=== PATIENT | female | born 1930 | race American Indian/Alaskan Native ===

== ENCOUNTER 2017-03-22 11:39 | Inpatient (IN) | payer OTHER, MEDICAID ==
[2017-03-24 19:00] VITALS: BMI 22.4
[2017-03-24] MEDS ORDERED: Insulin Regular 100 units/ml SC SCH (22:00)
[2017-03-25] MEDS: Pravastatin Sodium 20 MG TAB PO SCH ×2 (00:45→21:18)
[2017-03-25] MEDS ORDERED: Potassium Chl 20 mEq in NS 1,000 ML IV SCH (03:45)
[2017-03-25 03:48] VITALS: RESP 20
[2017-03-25 07:51] LABS: HEMOGLOBIN 9.3 g/dL (12.0-16.0); MEAN CELL VOLUME 87.5 fl (81.0-99.0); MEAN CORPUSCULAR HEMOGLOBIN 28.9 pg (27.0-31.0); RBC 3.21 Mil/uL (3.80-5.20); RED CELL DISTRIBUTION WIDTH 14.8 % (11.5-14.5); WHITE BLOOD COUNT 8.4 K/uL (4.8-10.8)
[2017-03-25 07:58] LABS: PARTIAL THROMBOPLASTIN TIME 29.7 Seconds (25.6-37.1); PROTHROMBIN TIME 11.6 Seconds (9.8-13.1)
[2017-03-25 08:01] LABS: ALBUMIN 2.6 g/dL (3.5-5.0); ALT/SGPT 31 U/L (9-52); AST/SGOT 41 U/L (14-36); BLOOD UREA NITROGEN 12 mg/dl (7-17); CALCIUM 8.3 mg/dL (8.4-10.2); GFR AFRICAN-AMERICAN > 60; GFR NON-AFRICAN AMERICAN > 60
[2017-03-25 08:19] LABS: ALB/GLOB RATIO 0.8 (1.0-2.1)
[2017-03-25] MEDS: Pantoprazole 40 mg EC Tab PO SCH (08:48)
[2017-03-25] MEDS: Enoxaparin 40 mg Syringe SC SCH (08:48)
[2017-03-25] MEDS ORDERED: Potassium Chloride 20 mEq ER Tab PO ONE (09:51)
[2017-03-25] MEDS: Magnesium Oxide 400 mg Tab UD PO SCH ×2 (11:28→16:40)
[2017-03-26 06:56] LABS: BLOOD UREA NITROGEN 12 mg/dl (7-17); CALCIUM 8.6 mg/dL (8.4-10.2); GFR AFRICAN-AMERICAN > 60; GFR NON-AFRICAN AMERICAN > 60; MAGNESIUM 1.7 MG/DL (1.6-2.3)
[2017-03-26] MEDS: Enoxaparin 40 mg Syringe SC SCH (09:32)
[2017-03-26] MEDS: Magnesium Oxide 400 mg Tab UD PO SCH ×2 (09:33→16:34)
[2017-03-26] MEDS: Pantoprazole 40 mg EC Tab PO SCH (09:35)
[2017-03-26] MEDS: Potassium Chloride 20 mEq ER Tab PO SCH ×2 (13:30→16:35)
[2017-03-26] MEDS: Pravastatin Sodium 20 MG TAB PO SCH (21:17)
[2017-03-27 07:49] LABS: BLOOD UREA NITROGEN 11 mg/dl (7-17); CALCIUM 8.8 mg/dL (8.4-10.2); GFR AFRICAN-AMERICAN > 60; GFR NON-AFRICAN AMERICAN > 60
[2017-03-27] MEDS: Pantoprazole 40 mg EC Tab PO SCH (08:21)
[2017-03-27] MEDS: Magnesium Oxide 400 mg Tab UD PO SCH ×2 (08:22→17:15)
[2017-03-27] MEDS: Enoxaparin 40 mg Syringe SC SCH (08:23)
--- NOTE | 2017-03-27 10:06 | CP.PCM.PN ---
Subjective - Date & Time of Evaluation Date of Evaluation: 03/27/17 Time of Evaluation: 10:04 - Subjective Subjective: Patient still complaining of hip pain, denies wrist pain. Denies numbness/ tingling. Objective - Vital Signs/Intake and Output Vital Signs (last 24 hours): Temp Pulse Resp BP Pulse Ox 98.2 F 85 20 129/66 99 03/27/17 08:10 03/27/17 08:22 03/27/17 08:10 03/27/17 08:22 03/27/17 08:10 - Medications Medications: Current Medications Acetaminophen (Tylenol 325mg Tab) 650 mg PO Q4 PRN PRN Reason: Fever of 100.6 F and Above Acetaminophen (Tylenol 325mg Tab) 650 mg PO Q4 PRN PRN Reason: Pain, Mild (1-3) Last Admin: 03/27/17 08:21 Dose: 650 mg Amlodipine Besylate (Norvasc) 5 mg PO DAILY [facility] Last Admin: 03/27/17 08:22 Dose: 5 mg Docusate Sodium (Colace) 100 mg PO BID [facility] Last Admin: 03/27/17 08:22 Dose: 100 mg Enoxaparin Sodium (Lovenox) 40 mg SC DAILY [facility] PRN Reason: Protocol Last Admin: 03/27/17 08:23 Dose: 40 mg Hydrochlorothiazide (Hydrodiuril) 25 mg PO DAILY [facility] Last Admin: 03/27/17 08:22 Dose: 25 mg Lisinopril (Zestril) 10 mg PO DAILY [facility] Last Admin: 03/27/17 08:22 Dose: 10 mg Magnesium Oxide (Mag-Ox) 400 mg PO BID [facility] Stop: 03/28/17 10:01 Last Admin: 03/27/17 08:22 Dose: 400 mg Ondansetron HCl (Zofran Inj) 4 mg IVP Q4 PRN PRN Reason: Nausea/Vomiting Pantoprazole Sodium (Protonix Ec Tab) 40 mg PO DAILY [facility] Last Admin: 03/27/17 08:21 Dose: 40 mg Pravastatin Sodium (Pravachol) 20 mg PO HS [facility] Last Admin: 03/26/17 21:17 Dose: 20 mg - Labs Labs: 03/25/17 05:30 03/27/17 07:01 PT 11.6 Seconds (9.8-13.1) 03/25/17 05:30 INR 1.0 (0.9-1.2) 03/25/17 05:30 APTT 29.7 Seconds (25.6-37.1) 03/25/17 05:30 - Extremities Exam Additional comments: LLE: +ROM ankle/toes, sensation intact, calves soft NT neg homans, incision intact, no erythema LUE: splint no longer over hand, falling off. +ROM fingers, sensation intact, cap refill < 2 sec, re wrapped Assessment and Plan (1) Closed left hip fracture Assessment & Plan: POD# 8 s/p left THR for fx -VTE proph -PT/OT -dressing changes daily prn -d/w Dr. Moreno, agrees with above Status: Acute (2) Fracture of left distal radius Assessment & Plan: splint re wrapped will repeat xrays to check for position plan casting when swelling decreased NWB on LUE at this time d/w Dr. Moreno, agrees with above Status: Acute
--- NOTE | 2017-03-27 11:00 | RAD ---
PROCEDURE: Left Wrist Radiographs. HISTORY: f/u left distal radius fx COMPARISON: None. FINDINGS: Distal left upper extremity cast limits evaluation of fine bony detail. Minimally angulated distal radial metaphyseal fracture is evident. The visualized joint spaces are mildly diffusely narrowed. The osseous structures are osteopenic. IMPRESSION: Minimally angulated distal radial metaphyseal fracture.
[2017-03-27 12:31] LABS: HEMOGLOBIN 10.5 g/dL (12.0-16.0); MEAN CORPUSCULAR HEMOGLOBIN 28.7 pg (27.0-31.0); RBC 3.65 Mil/uL (3.80-5.20); RED CELL DISTRIBUTION WIDTH 15.2 % (11.5-14.5); WHITE BLOOD COUNT 9.6 K/uL (4.8-10.8)
--- NOTE | 2017-03-27 13:24 | CP.PCM.CON ---
History of Present Illness - History of Present Illness History of Present Illness: Dr Hagan PMR consultation on Daniela Linda, born 1930, who has been admitted to [facility] for PHU following a left hip and radial fracture. She is NWB on the left UE and PWB on the left LE. Anterior approach to the THR was performed. Denies nerve symptoms Review of Systems - Constitutional Constitutional: absent: Anorexia - EENT Ears: absent: Ear Discharge, Ear Pain Nose/Mouth/Throat: absent: Nasal Congestion - Cardiovascular Cardiovascular: absent: Chest Pain - Respiratory Respiratory: absent: Dyspnea - Gastrointestinal Gastrointestinal: absent: Constipation - Musculoskeletal Musculoskeletal: absent: Numbness - Neurological Neurological: absent: Abnormal Movements, Radicular Pain Past Patient History - Infectious Disease Hx of Infectious Diseases: None - Tetanus Immunizations Tetanus Immunization: Unknown - Past Medical History & Family History Past Medical History?: Yes - Past Social History Smoking Status: Light Smoker < 10 Cigarettes Daily Alcohol: None Drugs: Denies Home Situation {Lives}: With Family - CARDIAC Hx Cardiac Disorders: Yes Hx Hypertension: Yes - PULMONARY Hx Respiratory Disorders: No - NEUROLOGICAL HX Cerebrovascular Accident: Yes - HEENT Hx HEENT Problems: No - RENAL Hx Chronic Kidney Disease: No - ENDOCRINE/METABOLIC Hx Diabetes Mellitus Type 2: Yes - HEMATOLOGICAL/ONCOLOGICAL Hx Blood Disorders: No - INTEGUMENTARY Hx Dermatological Problems: No - MUSCULOSKELETAL/RHEUMATOLOGICAL Hx Falls: Yes Other/Comment: L hip fx - GASTROINTESTINAL Hx Gastrointestinal Disorders: No - GENITOURINARY/GYNECOLOGICAL Hx Genitourinary Disorders: No - PSYCHIATRIC Hx Substance Use: No - SURGICAL HISTORY Other/Comment: yes, enlarged bladder, poor urinary control, date unknown - ANESTHESIA Hx Anesthesia: Yes Hx Anesthesia Reactions: No Meds Allergies/Adverse Reactions: Allergies Allergy/AdvReac Type Severity Reaction Status Date / Time No Known Allergies Allergy Verified 03/24/17 18:57 - Medications Medications: Current Medications Acetaminophen (Tylenol 325mg Tab) 650 mg PO Q4 PRN PRN Reason: Fever of 100.6 F and Above Acetaminophen (Tylenol 325mg Tab) 650 mg PO Q4 PRN PRN Reason: Pain, Mild (1-3) Last Admin: 03/27/17 08:21 Dose: 650 mg Amlodipine Besylate (Norvasc) 5 mg PO DAILY [facility] Last Admin: 03/27/17 08:22 Dose: 5 mg Docusate Sodium (Colace) 100 mg PO BID [facility] Last Admin: 03/27/17 08:22 Dose: 100 mg Enoxaparin Sodium (Lovenox) 40 mg SC DAILY [facility] PRN Reason: Protocol Last Admin: 03/27/17 08:23 Dose: 40 mg Ferrous Sulfate (Feosol) 325 mg PO BID [facility] Hydrochlorothiazide (Hydrodiuril) 25 mg PO DAILY [facility] Last Admin: 03/27/17 08:22 Dose: 25 mg Lisinopril (Zestril) 10 mg PO DAILY [facility] Last Admin: 03/27/17 08:22 Dose: 10 mg Magnesium Oxide (Mag-Ox) 400 mg PO BID [facility] Stop: 03/28/17 10:01 Last Admin: 03/27/17 08:22 Dose: 400 mg Ondansetron HCl (Zofran Inj) 4 mg IVP Q4 PRN PRN Reason: Nausea/Vomiting Pantoprazole Sodium (Protonix Ec Tab) 40 mg PO DAILY [facility] Last Admin: 03/27/17 08:21 Dose: 40 mg Pravastatin Sodium (Pravachol) 20 mg PO HS [facility] Last Admin: 03/26/17 21:17 Dose: 20 mg Physical Exam - Constitutional Appears: Non-toxic - Head Exam Head Exam: ATRAUMATIC, NORMAL INSPECTION, NORMOCEPHALIC - Eye Exam Eye Exam: EOMI - ENT Exam ENT Exam: Mucous Membranes Moist - Respiratory Exam Respiratory Exam: NORMAL BREATHING PATTERN - Cardiovascular Exam Cardiovascular Exam: REGULAR RHYTHM - GI/Abdominal Exam GI & Abdominal Exam: absent: Distended, Firm - Extremities Exam Extremities exam: Negative for: calf tenderness, pedal edema - Neurological Exam Neurological exam: Alert, Oriented x3 - Psychiatric Exam Psychiatric exam: Normal Affect, Normal Mood Results - Vital Signs Recent Vital Signs: Last Vital Signs Temp 98.2 F 03/27/17 08:10 Pulse 85 03/27/17 08:22 Resp 20 03/27/17 08:10 BP 129/66 03/27/17 08:22 Pulse Ox 99 03/27/17 08:10 - Labs Result Diagrams: 03/27/17 12:10 03/27/17 07:01 Labs: Laboratory Results - last 24 hr 03/27/17 03/27/17 07:01 12:10 WBC 9.6 RBC 3.65 L Hgb 10.5 L Hct 31.7 L MCV 87.0 MCH 28.7 MCHC 33.0 RDW 15.2 H Plt Count 397 D Sodium 133 Potassium 4.1 Chloride 98 Carbon Dioxide 31 H Anion Gap 8 L BUN 11 Creatinine 0.7 Est GFR ( Amer) > 60 Est GFR (Non-Af Amer) > 60 Random Glucose 101 Calcium 8.8 Assessment & Plan - Assessment and Plan (Free Text) Assessment: s/p left THR, anterior approach left radial fracture has venodyne boots for DVT prophylaxis and LMWH as well. pain is controlled NWB for now UE and PWB left LE. continue current care
[2017-03-27] MEDS: Pravastatin Sodium 20 MG TAB PO SCH (22:24)
--- NOTE | 2017-03-27 23:47 | PN ---
DATE: 03/27/2017 SUBJECTIVE: The patient is seen today, 03/27/2017, in Transitional Care Unit. PHYSICAL EXAMINATION: VITAL SIGNS: Blood pressure is 124/79, temperature 98.4, respiratory rate 20 and pulse 90. HEENT: Pupils equal, reactive to light. Normal-appearing mucosa of the conjunctivae, oropharyngeal and nasal membrane mucosa. NECK: Supple. No JVD. No carotid bruit. No lymph node. No thyromegaly. CHEST AND LUNGS: Bilateral symmetrical expansion. Good air exchange. No rales, no rhonchi. CARDIOVASCULAR SYSTEM: PMI not localized. S1 and S2. No additional sounds. ABDOMEN: Normoactive bowel sounds. No tenderness. No organomegaly. No masses. EXTREMITIES: No cyanosis, no clubbing, no edema. CENTRAL NERVOUS SYSTEM: Alert, awake, oriented x2. No neurological deficits could be appreciated. ASSESSMENT: 1. Status post left total hip replacement. 2. Hypertension. 3. Hypercholesterolemia. PLAN: Continue physical therapy and occupational therapy. Resume all home medications. We will check blood work. Vinod Hutchison MD
[2017-03-28] MEDS: Magnesium Oxide 400 mg Tab UD PO SCH (08:34)
[2017-03-28] MEDS: Enoxaparin 40 mg Syringe SC SCH (08:34)
[2017-03-28] MEDS: Pantoprazole 40 mg EC Tab PO SCH (08:35)
--- NOTE | 2017-03-28 11:25 | CP.PCM.PN ---
Subjective - Date & Time of Evaluation Date of Evaluation: 03/28/17 Time of Evaluation: 11:22 - Subjective Subjective: Patient states she is tired. Still has mild pain in her hip. No pain in her wrist. Objective - Vital Signs/Intake and Output Vital Signs (last 24 hours): Temp Pulse Resp BP Pulse Ox 99.3 F 79 20 133/68 100 03/28/17 08:57 03/28/17 08:57 03/28/17 08:57 03/28/17 08:57 03/28/17 08:57 - Medications Medications: Current Medications Acetaminophen (Tylenol 325mg Tab) 650 mg PO Q4 PRN PRN Reason: Fever of 100.6 F and Above Acetaminophen (Tylenol 325mg Tab) 650 mg PO Q4 PRN PRN Reason: Pain, Mild (1-3) Last Admin: 03/27/17 08:21 Dose: 650 mg Amlodipine Besylate (Norvasc) 5 mg PO DAILY [facility] Last Admin: 03/28/17 08:34 Dose: 5 mg Docusate Sodium (Colace) 100 mg PO BID [facility] Last Admin: 03/28/17 08:32 Dose: 100 mg Enoxaparin Sodium (Lovenox) 40 mg SC DAILY [facility] PRN Reason: Protocol Last Admin: 03/28/17 08:34 Dose: 40 mg Ferrous Sulfate (Feosol) 325 mg PO BID [facility] Last Admin: 03/28/17 08:33 Dose: 325 mg Hydrochlorothiazide (Hydrodiuril) 25 mg PO DAILY [facility] Last Admin: 03/28/17 08:34 Dose: 25 mg Lisinopril (Zestril) 10 mg PO DAILY [facility] Last Admin: 03/28/17 08:35 Dose: 10 mg Ondansetron HCl (Zofran Inj) 4 mg IVP Q4 PRN PRN Reason: Nausea/Vomiting Pantoprazole Sodium (Protonix Ec Tab) 40 mg PO DAILY [facility] Last Admin: 03/28/17 08:35 Dose: 40 mg Pravastatin Sodium (Pravachol) 20 mg PO HS [facility] Last Admin: 03/27/17 22:24 Dose: 20 mg - Labs Labs: 03/27/17 12:10 03/27/17 07:01 PT 11.6 Seconds (9.8-13.1) 03/25/17 05:30 INR 1.0 (0.9-1.2) 03/25/17 05:30 APTT 29.7 Seconds (25.6-37.1) 03/25/17 05:30 - Extremities Exam Additional comments: Left hip: dressing changed. Incision intact, dry, no erythema. +ROm ankle/toes, sensation intact calves sfot NT neg homans +DP/PT pulses Left wrist: xrays reviewed, no obvious change in position of distal radius fx on ap/lat/oblique. SAC placed, NVID pre and post casting. Swellingn improved. +ROM fingers, sensationintact Assessment and Plan (1) Closed left hip fracture Assessment & Plan: s/p THR dressing changes PT vte proph d/w Dr. Szymanski, agrees with above Status: Acute (2) Fracture of left distal radius Assessment & Plan: s/p casting non op NWB on wrist, but can use platform walker for ambulation Status: Acute
[2017-03-28] MEDS: Pravastatin Sodium 20 MG TAB PO SCH (21:40)
[2017-03-29] MEDS: Enoxaparin 40 mg Syringe SC SCH (08:55)
[2017-03-29] MEDS: Pantoprazole 40 mg EC Tab PO SCH (08:58)
[2017-03-29 18:34] LABS: SQUAMOUS EPITHIAL 3 /hpf (0-5); URINE BACTERIA OCC (<OCC); URINE BILIRUBIN NEGATIVE (NEGATIVE); URINE BLOOD SMALL (NEGATIVE); URINE CLARITY CLOUDY (Clear); URINE COLOR YELLOW (YELLOW); URINE GLUCOSE (UA) NEG (Normal); URINE LEUKOCYTE ESTERASE LARGE Leu/uL (Negative); URINE NITRATE NEGATIVE (NEGATIVE); URINE PROTEIN NEGATIVE (NEGATIVE); WBC CLUMPS OCC /hpf
[2017-03-29] MEDS: Pravastatin Sodium 20 MG TAB PO SCH (21:00)
[2017-03-30 07:35] LABS: BASO % 0.4 % (0.0-2.0); EOS # 0.1 K/uL (0.0-0.7); EOS % 0.9 % (0.0-4.0); HEMOGLOBIN 9.9 g/dL (12.0-16.0); LYMPH # 1.4 K/uL (1.0-4.3); MEAN CELL VOLUME 87.2 fl (81.0-99.0); MEAN CORPUSCULAR HEMOGLOBIN 28.7 pg (27.0-31.0); MEAN PLATELET VOLUME 7.6 fl (7.2-11.7); MONO # 0.9 K/uL (0.0-0.8); MONO % 8.7 % (0.0-10.0); NEUT # 8.2 K/uL (1.8-7.0); RBC 3.44 Mil/uL (3.80-5.20); RED CELL DISTRIBUTION WIDTH 14.9 % (11.5-14.5); WHITE BLOOD COUNT 10.7 K/uL (4.8-10.8)
[2017-03-30 07:42] LABS: ALB/GLOB RATIO 0.9 (1.0-2.1); ALBUMIN 3.2 g/dL (3.5-5.0); ALT/SGPT 46 U/L (9-52); AST/SGOT 36 U/L (14-36); BLOOD UREA NITROGEN 19 mg/dl (7-17); GFR AFRICAN-AMERICAN > 60; GFR NON-AFRICAN AMERICAN 60
--- NOTE | 2017-03-30 07:52 | CP.PCM.CON ---
History of Present Illness - History of Present Illness History of Present Illness: Pt is an 86 year old female admitted to [facility] TCU and referred to the technical publications writer for evaluation. Med history positive for fall and multiple fractures according to the patient. She reported having hip surgery with "the fear of not walking again." See medical record for complete medical history and medications. Social History: pt reported that her grandson resides with her. She spoke of having 4 children who all and 10+ grandchildren. Ed/ Voc: pt raised in [place], she graduated HS. 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 Pt spoke of spending her time watching TV and playing cards. MSE: Pt alert, oriented to year, month, day, affect constricted, mood dysphoric/ anxious over status, fear of not walking again. Education provided and strategies introduced to reduce distress/negative thoughts. Dx: Adjustment Dx with depression/anxiety Plan: Continued Sup therapy Past Patient History - Infectious Disease Hx of Infectious Diseases: None - Tetanus Immunizations Tetanus Immunization: Unknown - Past Medical History & Family History Past Medical History?: Yes - Past Social History Smoking Status: Light Smoker < 10 Cigarettes Daily Alcohol: None Drugs: Denies Home Situation {Lives}: With Family - CARDIAC Hx Cardiac Disorders: Yes Hx Hypertension: Yes - PULMONARY Hx Respiratory Disorders: No - NEUROLOGICAL HX Cerebrovascular Accident: Yes - HEENT Hx HEENT Problems: No - RENAL Hx Chronic Kidney Disease: No - ENDOCRINE/METABOLIC Hx Diabetes Mellitus Type 2: Yes - HEMATOLOGICAL/ONCOLOGICAL Hx Blood Disorders: No - INTEGUMENTARY Hx Dermatological Problems: No - MUSCULOSKELETAL/RHEUMATOLOGICAL Hx Falls: Yes Other/Comment: L hip fx - GASTROINTESTINAL Hx Gastrointestinal Disorders: No - GENITOURINARY/GYNECOLOGICAL Hx Genitourinary Disorders: No - PSYCHIATRIC Hx Substance Use: No - SURGICAL HISTORY Other/Comment: yes, enlarged bladder, poor urinary control, date unknown - ANESTHESIA Hx Anesthesia: Yes Hx Anesthesia Reactions: No Meds Allergies/Adverse Reactions: Allergies Allergy/AdvReac Type Severity Reaction Status Date / Time No Known Allergies Allergy Verified 03/24/17 18:57 - Medications Medications: Current Medications Acetaminophen (Tylenol 325mg Tab) 650 mg PO Q4 PRN PRN Reason: Fever of 100.6 F and Above Acetaminophen (Tylenol 325mg Tab) 650 mg PO Q4 PRN PRN Reason: Pain, Mild (1-3) Last Admin: 03/27/17 08:21 Dose: 650 mg Amlodipine Besylate (Norvasc) 5 mg PO DAILY [facility] Last Admin: 03/29/17 08:57 Dose: 5 mg Docusate Sodium (Colace) 100 mg PO BID [facility] Last Admin: 03/29/17 16:45 Dose: 100 mg Enoxaparin Sodium (Lovenox) 40 mg SC DAILY [facility] PRN Reason: Protocol Last Admin: 03/29/17 08:55 Dose: 40 mg Ferrous Sulfate (Feosol) 325 mg PO BID [facility] Last Admin: 03/29/17 16:44 Dose: 325 mg Hydrochlorothiazide (Hydrodiuril) 25 mg PO DAILY [facility] Last Admin: 03/29/17 08:56 Dose: 25 mg Lisinopril (Zestril) 10 mg PO DAILY [facility] Last Admin: 03/29/17 08:58 Dose: 10 mg Ondansetron HCl (Zofran Inj) 4 mg IVP Q4 PRN PRN Reason: Nausea/Vomiting Pantoprazole Sodium (Protonix Ec Tab) 40 mg PO DAILY [facility] Last Admin: 03/29/17 08:58 Dose: 40 mg Pravastatin Sodium (Pravachol) 20 mg PO HS [facility] Last Admin: 03/29/17 21:00 Dose: 20 mg Results - Vital Signs Recent Vital Signs: Last Vital Signs Temp 99.1 F 03/29/17 20:20 Pulse 83 03/29/17 20:20 Resp 20 03/29/17 20:20 BP 126/55 L 03/29/17 20:20 Pulse Ox 100 03/29/17 20:20 - Labs Result Diagrams: 03/30/17 07:15 03/30/17 07:15 Labs: Laboratory Results - last 24 hr 03/29/17 03/30/17 03/30/17 12:49 07:15 07:15 WBC 10.7 RBC 3.44 L Hgb 9.9 L Hct 30.0 L MCV 87.2 MCH 28.7 MCHC 33.0 RDW 14.9 H Plt Count 419 H MPV 7.6 Neut % (Auto) 77.0 H Lymph % (Auto) 13.0 L [place] % (Auto) 8.7 Eos % (Auto) 0.9 Baso % (Auto) 0.4 Neut # 8.2 H Lymph # 1.4 [place] # 0.9 H Eos # 0.1 Baso # 0.0 Sodium 135 Potassium 3.8 Chloride 97 L Carbon Dioxide 33 H Anion Gap 9 L BUN 19 H Creatinine 0.9 Est GFR ( Amer) > 60 Est GFR (Non-Af Amer) 60 Random Glucose 104 Calcium 9.0 Total Bilirubin 0.5 AST 36 ALT 46 Alkaline Phosphatase 117 Total Protein 6.5 Albumin 3.2 L D Globulin 3.3 Albumin/Globulin Ratio 0.9 L Urine Color Yellow Urine Clarity Cloudy Urine pH 8.0 Ur Specific [place] < 1.005 Urine Protein Negative Urine Glucose (UA) Neg Urine Ketones Negative Urine Blood Small Urine Nitrate Negative Urine Bilirubin Negative Urine Urobilinogen 4.0 H Ur Leukocyte Esterase Large Urine WBC Clumps (Auto) Occ H Urine Microscopic WBC 26 H Ur Squamous Epith Cells 3 Urine Bacteria Occ H Urine Yeast (Budding) Many H
[2017-03-30] MEDS: Enoxaparin 40 mg Syringe SC SCH (09:01)
[2017-03-30] MEDS: Pantoprazole 40 mg EC Tab PO SCH (09:02)
[2017-03-30] MEDS: Pravastatin Sodium 20 MG TAB PO SCH (21:44)
[2017-03-31] MEDS: Enoxaparin 40 mg Syringe SC SCH (08:40)
[2017-03-31] MEDS: Pantoprazole 40 mg EC Tab PO SCH (08:41)
--- NOTE | 2017-03-31 12:49 | CARD ---
APPROVED REPORT EKG Measurement Heart [id number] <Conclusion> Normal sinus rhythm Left anterior fascicular block Abnormal ECG
--- NOTE | 2017-03-31 14:51 | PN ---
DATE: Covering for Dr. Hutchison. SUBJECTIVE: The patient denies any chest pain or shortness of breath. She did experience dizziness this morning and for that reason, physical therapy was postponed. PHYSICAL EXAMINATION: VITAL SIGNS: Blood pressure 125/52, heart rate 73, temperature 98.2, respirations 20. HEENT: Pale conjunctivae. CHEST: Clear. HEART: S1 and S2, regular. EXTREMITIES: No edema. LABORATORY DATA: Hemoglobin and hematocrit 9.9 and 30.0, white count 10.7, platelet count 419,000. SMA-7: Sodium 135, potassium 3.8, chloride 97, CO2 of 33, glucose 104, BUN 19, creatinine 0.9. Recent echocardiographic study on 03/19/2017 revealed normal left ventricular systolic function, diastolic function, normal chamber size, trace to mild MR and mild TR that was performed at [facility] The most recent EKG is from 03/18/2017 which revealed sinus tachycardia at 303, possible left atrial enlargement, left anterior fascicular block. ASSESSMENT: 1. Status post left hip arthroplasty anterior approach, femoral neck osteotomy, release of iliopsoas. Autograft bone graft to the acetabulum. 2. Anemia. 3. Hypertension. 4. Hyperlipidemia. RECOMMENDATIONS: Continue Zestril 10 mg once a day, Pravachol 20 mg once a day, Norvasc 5 mg once a day, subcutaneous Lovenox 40 mg once a day, hydrochlorothiazide 25 mg once a day, and ferrous sulfate 325 mg once a day. I will obtain 12-lead EKG today. Oscar Cazares MD
[2017-03-31] MEDS: Pravastatin Sodium 20 MG TAB PO SCH (21:43)
--- NOTE | 2017-04-01 01:51 | PN ---
DATE: 03/29/2017 SUBJECTIVE: The patient is seen on 03/29/2017 during physical therapy. The patient was cooperating with physical therapy and she offers no complaints. PHYSICAL EXAMINATION: VITAL SIGNS: Blood pressure was 123/61, temperature 98.2, respiratory rate 20 and pulse 83. HEENT: Pupils equal, reactive to light. Normal-appearing mucosa of the conjunctivae, oropharynx and nasal membrane mucosa. NECK: Supple. No JVD. No carotid bruit. No lymph node. No thyromegaly. CHEST AND LUNGS: Bilateral symmetrical expansion. Good air exchange. No rales, no rhonchi. CARDIOVASCULAR: PMI not localized. S1, S2. No additional sounds. ABDOMEN: Normoactive bowel sounds. No tenderness. No organomegaly. No masses. EXTREMITIES: No cyanosis, no clubbing, no edema. CENTRAL NERVOUS SYSTEM: Alert, awake, oriented x2. No neurological deficit could be appreciated. ASSESSMENT: 1. Left total hip replacement. 2. Status post fall. 3. Hypertension. 4. Osteoarthritis. 5. Hypercholesterolemia. PLAN: Continue current medications and physical therapy. Vinod Hutchison MD
--- NOTE | 2017-04-01 02:20 | HP ---
HISTORY OF PRESENT ILLNESS: The patient is an 86-year-old female, who was admitted to transitional care unit at [facility] for subacute rehabilitation following left hip and radial fracture. The patient is nonweightbearing on the left upper extremity and partial weightbearing on the left lower extremity. The patient denied to have any chest pain or shortness of breath. REVIEW OF SYSTEMS: Other review of systems is negative. ALLERGIES: No known allergy. MEDICATIONS: As per MAR. PAST MEDICAL HISTORY: Osteoarthritis, hypertension, dysfunctional gait. SOCIAL HISTORY: No history of smoking, EtOH or substance abuse. FAMILY HISTORY: Noncontributory. PHYSICAL EXAMINATION: GENERAL: The patient was in bed, comfortable, not in any cardiopulmonary distress. VITAL SIGNS: Blood pressure 133/68, temperature of 99, respiratory rate 20, and pulse 84. HEENT: Pupils equal, reactive to light. Normal-appearing mucosa of the conjunctivae, oropharynx and nasal membrane mucosa. NECK: Supple. No JVD. No carotid bruit. No lymph node. No thyromegaly. CHEST/LUNGS: Bilateral symmetrical expansion. Good air exchange. No rales, no rhonchi. CARDIOVASCULAR SYSTEM: PMI not localized. S1, S2. No additional sounds. ABDOMEN: Normoactive bowel sounds. No tenderness. No organomegaly. No masses. EXTREMITIES: No cyanosis, no clubbing, no edema. Left wrist is in cast. The patient has surgical dressing at the site of left hip. PROFESSIONAL DRIVER: Alert, awake, oriented x2. No neurological deficit could be appreciated. ASSESSMENT: 1. Subacute rehabilitation. 2. Status post fall with fracture of left wrist and left hip. 3. Hypertension. 4. Osteoarthritis. 5. Status post left total hip replacement. PLAN: Resume the patient's medications. Physical therapy and occupational therapy. Physical Medicine and Rehabilitation consult. Follow their recommendations. Gucci MD Foster
[2017-04-01] MEDS: Pantoprazole 40 mg EC Tab PO SCH (09:16)
[2017-04-01] MEDS: Enoxaparin 40 mg Syringe SC SCH (09:17)
--- NOTE | 2017-04-01 14:52 | PN ---
DATE: FOLLOWUP SUBJECTIVE: The patient denies dizziness or palpitation. PHYSICAL EXAMINATION: VITAL SIGNS: Blood pressure 109/55, heart rate 84, temperature 98.2, respirations 20. HEENT: Pale conjunctivae. CHEST: Clear. HEART: S1 and S2 regular. EXTREMITIES: No edema. LABORATORY DATA: Yesterday's EKG revealed normal sinus rhythm with rate of 81, left anterior fascicular block. ASSESSMENT: 1. Status post left hip arthroplasty, femoral neck osteotomy and release of iliopsoas. Bone autograft to the acetabulum. 2. Anemia. 3. Hypertension. 4. Hyperlipidemia. 5. Postural dizziness. RECOMMENDATIONS: Continue subcutaneous Lovenox 40 mg once a day, hydrochlorothiazide 25 mg once a day, Norvasc at 5 mg once a day, Pravachol 20 mg once a day, Zestril 10 mg once a day. Oscar Cazares MD
[2017-04-01] MEDS: Pravastatin Sodium 20 MG TAB PO SCH (21:29)
[2017-04-02] MEDS: Enoxaparin 40 mg Syringe SC SCH (08:30)
[2017-04-02] MEDS: Pantoprazole 40 mg EC Tab PO SCH (08:31)
--- NOTE | 2017-04-02 13:21 | PN ---
DATE: SUBJECTIVE: The patient did not go for full rehab today because she had postural hypertension. She denies any dizziness at this time or chest pain. PHYSICAL EXAMINATION: VITAL SIGNS: Blood pressure 107/59, heart rate 79, temperature 97.2, respirations 20. HEENT: Normocephalic. CHEST: Clear. HEART: S1 and S2, regular. EXTREMITIES: No edema. ASSESSMENT: 1. Status post left hip arthroplasty. 2. Postural hypertension. 3. Anemia. 4. Hyperlipidemia. RECOMMENDATIONS: Continue Zestril 10 mg once a day, Protonix 40 mg once a day, Pravachol 20 mg once a day, Norvasc at 5 mg once a day. Discontinue hydrochlorothiazide. Oscar Cazares MD
[2017-04-02] MEDS: Pravastatin Sodium 20 MG TAB PO SCH (21:35)
[2017-04-03] MEDS: Pantoprazole 40 mg EC Tab PO SCH (08:15)
[2017-04-03 12:13] LABS: HEMOGLOBIN 9.8 g/dL (12.0-16.0); MEAN CELL VOLUME 87.7 fl (81.0-99.0); MEAN CORPUSCULAR HEMOGLOBIN 28.2 pg (27.0-31.0); MEAN CORPUSCULAR HGB CONC 32.2 g/dL (33.0-37.0); RBC 3.46 Mil/uL (3.80-5.20); RED CELL DISTRIBUTION WIDTH 15.1 % (11.5-14.5); WHITE BLOOD COUNT 11.4 K/uL (4.8-10.8)
[2017-04-03 12:23] LABS: BLOOD UREA NITROGEN 20 mg/dl (7-17); GFR AFRICAN-AMERICAN > 60; GFR NON-AFRICAN AMERICAN 53
--- NOTE | 2017-04-03 13:23 | RAD ---
HISTORY: productive cough COMPARISON: No prior. FINDINGS: LUNGS: No active pulmonary disease. PLEURA: No significant pleural effusion identified, no pneumothorax apparent. CARDIOVASCULAR: Normal. OSSEOUS STRUCTURES: No significant abnormalities. VISUALIZED UPPER ABDOMEN: Normal. OTHER FINDINGS: None. IMPRESSION: No active disease.
[2017-04-03] MEDS ORDERED: Sodium Chloride 0.9% 500 ML IV ONE (13:33)
[2017-04-03] MEDS ORDERED: Potassium Chloride 20 mEq ER Tab PO ONE (13:35)
[2017-04-03] MEDS: guaiFENesin DM 100 mg-10 mg/5 ml UD PO SCH ×2 (13:45→16:18)
[2017-04-03] MEDS: Enoxaparin 40 mg Syringe SC SCH (17:01)
[2017-04-03] MEDS: Pravastatin Sodium 20 MG TAB PO SCH (21:38)
--- NOTE | 2017-04-03 23:45 | PN ---
DATE: 04/03/2017 DAILY PROGRESS NOTE SUBJECTIVE: Patient is seen today on 04/03/2017. PHYSICAL EXAMINATION: GENERAL: She is in not in any cardiopulmonary distress. VITAL SIGNS: Patient has orthostatic changes with blood pressure dropping on standing from 126 systolic to 92 mmHg. Temperature 97.5, respiratory rate 20 and pulse 84. HEENT: Pupils equal, reactive to light. Normal-appearing mucosa of the conjunctivae, oropharynx and nasal membrane mucosa. NECK: Supple. No JVD. No carotid bruit. No lymph node. No thyromegaly. CHEST AND LUNGS: Bilateral symmetrical expansion. Good air exchange. No rales, no rhonchi. CARDIOVASCULAR SYSTEM: PMI not localized. S1, S2. No additional sounds. ABDOMEN: Normoactive bowel sounds. No tenderness. No organomegaly. No masses. EXTREMITIES: No cyanosis, no clubbing, no edema. Left upper extremity is in cast for radial fracture. CENTRAL NERVOUS SYSTEM: Alert, awake, oriented x2. No neurological deficit could be appreciated. ASSESSMENT: 1. Fall with fracture of the left hip and left radius status post total left hip replacement. 2. Hypertension with orthostatic changes. PLAN: We will stop all antihypertensive medications at this point and we will check orthostatic changes. Continue physical therapy and occupational therapy. Continue DVT prophylaxis. Vinod Hutchison MD
[2017-04-04] MEDS: Enoxaparin 40 mg Syringe SC SCH (08:40)
[2017-04-04] MEDS: guaiFENesin DM 100 mg-10 mg/5 ml UD PO SCH ×3 (08:41→17:22)
[2017-04-04] MEDS: Pantoprazole 40 mg EC Tab PO SCH (08:41)
[2017-04-04] MEDS: Pravastatin Sodium 20 MG TAB PO SCH (21:26)
[2017-04-05] MEDS: Enoxaparin 40 mg Syringe SC SCH (08:36)
[2017-04-05] MEDS: Pantoprazole 40 mg EC Tab PO SCH (08:37)
[2017-04-05] MEDS: guaiFENesin DM 100 mg-10 mg/5 ml UD PO SCH ×3 (08:37→17:03)
--- NOTE | 2017-04-05 12:01 | PN ---
DATE: 04/04/2017 SUBJECTIVE: Patient was seen on 04/04/2017. She was not in any cardiopulmonary distress. Patient was feeling less dizzy after stopping antihypertensive medications. PHYSICAL EXAMINATION VITAL SIGNS: Still has orthostatic changes with systolic blood pressure 148 on lying down and that drops to 110 on standing. Temperature 99.3, respiratory rate 20, and pulse 82. HEENT: Pupils equal, reactive to light. Normal-appearing mucosa of the conjunctivae, oropharyngeal, and nasal membrane mucosa. NECK: Supple. No JVD. No carotid bruit. No lymph node. No thyromegaly. CHEST AND LUNGS: Bilateral symmetrical expansion. Good air exchange. No rales, no rhonchi. CARDIOVASCULAR SYSTEM: PMI not localized. S1 and S2. No additional sounds. ABDOMEN: Normoactive bowel sounds. No tenderness. No organomegaly, no masses. EXTREMITIES: No cyanosis, no clubbing, no edema. CENTRAL NERVOUS SYSTEM: Alert, awake, and oriented x2 and moves all extremities. ASSESSMENT: 1. Status post fall with fracture of the left hip, status post left total hip replacement. 2. Fracture of left radius. 3. Orthostatic hypotension with dizziness. PLAN: Keep antihypertensive medications on hold and if orthostatic changes continue, we will start the patient on ProAmatine. Vinod Hutchison MD
--- NOTE | 2017-04-05 14:29 | RAD ---
PROCEDURE: Left Wrist Radiographs. HISTORY: fracture follow up COMPARISON: 03/27/2017 FINDINGS: BONES: Overlying casting obscures the detail-as before Comminuted fracture with minimal cortical buckling renoted. Mild osteopenia JOINTS: First carpal metacarpal advanced osteoarthrosis. Radiocarpal joint space narrowing -. Both similar SOFT TISSUES: Normal. OTHER FINDINGS: None. IMPRESSION: Minimally comminuted and likely impacted distal radial metaphyseal to epiphyseal fracture and residual fracture lines persist. No interval displaced fracture fragments. Ongoing healing inferred Elsewhere osteoarthrosis- 1st carpal metacarpal joint most notable
--- NOTE | 2017-04-05 14:33 | RAD ---
PROCEDURE: HISTORY: f/u THR for fx COMPARISON: None TECHNIQUE: AP view of the pelvis and applicable frog leg views obtained. FINDINGS: Left replacement off the tabular femoral stem component anatomically aligned. Elsewhere generalized osteopenia present. Inferior lumbar spondylosis with degenerative disc changes. Right hip osteoarthrosis. Right hip subcortical cystic changes Bilateral hemipelvic phleboliths. IMPRESSION: Status post left hip total hip replacement -anatomically aligned. Elsewhere arthrosis: Inferior lumbar spine (Left lateral marginal osteophytes especially prominent). Moderate right hip osteoarthrosis with subchondral cystic changes present
[2017-04-05 18:19] LABS: HEMOGLOBIN 10.6 g/dL (12.0-16.0); MEAN CORPUSCULAR HEMOGLOBIN 28.5 pg (27.0-31.0); MEAN CORPUSCULAR HGB CONC 32.4 g/dL (33.0-37.0); RBC 3.7 Mil/uL (3.80-5.20); WHITE BLOOD COUNT 11.6 K/uL (4.8-10.8)
[2017-04-05 19:05] LABS: BLOOD UREA NITROGEN 16 mg/dl (7-17); CALCIUM 9.2 mg/dL (8.4-10.2); GFR AFRICAN-AMERICAN > 60; GFR NON-AFRICAN AMERICAN > 60
[2017-04-05] MEDS: Pravastatin Sodium 20 MG TAB PO SCH (22:12)
--- NOTE | 2017-04-06 07:35 | CP.PCM.PN ---
Subjective - Date & Time of Evaluation Date of Evaluation: 04/06/17 Time of Evaluation: 09:56 - Subjective Subjective: Patient states pain is improved in left wrist and left hip. She denies new complaints, denies CP/SOB Objective - Vital Signs/Intake and Output Vital Signs (last 24 hours): Temp Pulse Resp BP Pulse Ox 98.1 F 83 20 133/72 100 04/05/17 19:36 04/05/17 19:36 04/05/17 19:36 04/05/17 19:36 04/05/17 19:36 - Medications Medications: Current Medications Acetaminophen (Tylenol 325mg Tab) 650 mg PO Q4 PRN PRN Reason: Fever of 100.6 F and Above Last Admin: 03/31/17 10:49 Dose: 650 mg Acetaminophen (Tylenol 325mg Tab) 650 mg PO Q4 PRN PRN Reason: Pain, Mild (1-3) Last Admin: 04/03/17 08:13 Dose: 650 mg Docusate Sodium (Colace) 100 mg PO BID [facility] Last Admin: 04/05/17 17:02 Dose: 100 mg Enoxaparin Sodium (Lovenox) 40 mg SC DAILY [facility] PRN Reason: Protocol Last Admin: 04/05/17 08:36 Dose: 40 mg Ferrous Sulfate (Feosol) 325 mg PO BID [facility] Last Admin: 04/05/17 17:02 Dose: 325 mg Guaifenesin/Dextromethorphan (Robitussin Dm) 5 ml PO TID [facility] Last Admin: 04/05/17 17:03 Dose: 5 ml Ondansetron HCl (Zofran Inj) 4 mg IVP Q4 PRN PRN Reason: Nausea/Vomiting Pantoprazole Sodium (Protonix Ec Tab) 40 mg PO DAILY [facility] Last Admin: 04/05/17 08:37 Dose: 40 mg Pravastatin Sodium (Pravachol) 20 mg PO HS [facility] Last Admin: 04/05/17 22:12 Dose: 20 mg - Labs Labs: 04/05/17 18:00 04/05/17 17:50 PT 11.6 Seconds (9.8-13.1) 03/25/17 05:30 INR 1.0 (0.9-1.2) 03/25/17 05:30 APTT 29.7 Seconds (25.6-37.1) 03/25/17 05:30 - Extremities Exam Additional comments: Left wrist: +ROM fingers, sensationintact, fingers warm cap refill <2 sec Left hip: incision well healed, linda removed, steristrips placed. No erythema , thigh soft, calves soft NT neg homans +ROM ankle/toes, sensation itnact Assessment and Plan (1) Closed left hip fracture Assessment & Plan: 2 weeks s/p left THR for fx -cont PT/OT for rehab placement f/u DR. Moreno 2 weeks call for appt f/u xrays reviewed, well positioned prosthesis d/w Kalen Moreno, agrees with above Status: Acute (2) Fracture of left distal radius Assessment & Plan: cont cast position maintained, imaging reviewed NWB to wrist f/u 2 weeks keep cast dry and intact Status: Acute Radiology Interpretation - Radiology Interpretation #2 Interpretation: Patient Name / ID : NEAL VERONICA / [id number] Exam Date : 04/05/2017 14:04:51 ( Approved ) Study Comment : Sex / Age : F / 86Y Creator : Melissa Oh Dictator : Melissa Oh Public Health Dietitian : [employer] Teacher : Melissa Oh Approver2 : Report Date : 04/05/2017 14:27:40 My Comment : PROCEDURE: HISTORY: f/u THR for fx COMPARISON: None TECHNIQUE: AP view of the pelvis and applicable frog leg views obtained. FINDINGS: Left replacement off the tabular femoral stem component anatomically aligned. Elsewhere generalized osteopenia present. Inferior lumbar spondylosis with degenerative disc changes. Right hip osteoarthrosis. Right hip subcortical cystic changes Bilateral hemipelvic phleboliths. IMPRESSION: Status post left hip total hip replacement -anatomically aligned. Elsewhere arthrosis: Inferior lumbar spine (Left lateral marginal osteophytes especially prominent). Moderate right hip osteoarthrosis with subchondral cystic changes present - Radiology Interpretation #3 Interpretation: Patient Name / ID : NEAL VERONICA / [id number] Exam Date : 04/05/2017 14:04:51 ( Approved ) Study Comment : Sex / Age : F / 86Y Creator : Melissa Oh Dictator : Melissa Oh Public Health Dietitian : [employer] Spanish Teacher : Melissa Oh Approver2 : Report Date : 04/05/2017 14:24:15 My Comment : PROCEDURE: Left Wrist Radiographs. HISTORY: fracture follow up COMPARISON: 03/27/2017 FINDINGS: BONES: Overlying casting obscures the detail-as before Comminuted fracture with minimal cortical buckling renoted. Mild osteopenia JOINTS: First carpal metacarpal advanced osteoarthrosis. Radiocarpal joint space narrowing -. Both similar SOFT TISSUES: Normal. OTHER FINDINGS: None. IMPRESSION: Minimally comminuted and likely impacted distal radial metaphyseal to epiphyseal fracture and residual fracture lines persist. No interval displaced fracture fragments. Ongoing healing inferred Elsewhere osteoarthrosis- 1st carpal metacarpal joint most notable
[2017-04-06] MEDS: Pantoprazole 40 mg EC Tab PO SCH (08:30)
[2017-04-06] MEDS: Enoxaparin 40 mg Syringe SC SCH (08:30)
[2017-04-06] MEDS: guaiFENesin DM 100 mg-10 mg/5 ml UD PO SCH ×2 (08:31→13:49)
[2017-04-06 10:38] VITALS: BP 109/55; PULSE 81; TEMP 98.8; O2SAT 97
--- NOTE | 2017-04-07 06:23 | DS ---
REASON FOR ADMISSION: This is an 86-year-old female who was admitted to Transitional Care Unit for physical therapy. COURSE OF HOSPITALIZATION: Patient was admitted to Transitional Care Unit after having left total hip replacement as well as cast on the left upper extremity after a fall. Patient was cooperative to physical therapy and occupational therapy. During this patient admission, patient's blood pressure was dropping and she was feeling dizzy with orthostatic changes. All her antihypertensive medications were stopped and orthostatic changes improved and patient was discharged in stable condition to subacute rehabilitation. FINAL DIAGNOSES: 1. Fall. 2. Status post left total hip replacement. 3. History of hypertension. 4. Anemia of chronic disease. [place] MD Foster
== END 2017-04-06 14:30 | DRG 561 ==
LOC: H.TCU 03-24 19:25
PROVIDERS: ADMIT Internal Medicine; ATTEND Internal Medicine
PROC: F07Z9FZ Gait Training/Functional Ambulation Treatment using Assistive, Adaptive, Supportive or Protective Equipment (ICD-10-PCS; principal; 2017-03-25)
PROC: F07M6FZ Therapeutic Exercise Treatment of Musculoskeletal System - Whole Body using Assistive, Adaptive, Supportive or Protective Equipment (ICD-10-PCS; 2017-03-25)
PROC: F08Z4FZ Home Management Treatment using Assistive, Adaptive, Supportive or Protective Equipment (ICD-10-PCS; 2017-03-25)
DX: Z47.1 Aftercare following joint replacement surgery (principal); D63.8 Anemia in other chronic diseases classified elsewhere; E11.9 Type 2 diabetes mellitus without complications; E78.00 Pure hypercholesterolemia, unspecified; E78.5 Hyperlipidemia, unspecified; R42 Dizziness and giddiness; R53.83 Other fatigue; S52.502D Unspecified fracture of the lower end of left radius, subsequent encounter for closed fracture with routine healing; Z86.73 Personal history of transient ischemic attack (TIA), and cerebral infarction without residual deficits; Z87.891 Personal history of nicotine dependence; Z96.642 Presence of left artificial hip joint; F32.9 Major depressive disorder, single episode, unspecified; F41.9 Anxiety disorder, unspecified; I10 Essential (primary) hypertension; I95.1 Orthostatic hypotension; M16.11 Unilateral primary osteoarthritis, right hip; W18.30XD Fall on same level, unspecified, subsequent encounter; W19.XXXD Unspecified fall, subsequent encounter